=== PATIENT | female | born 1950 | race Caucasian/White ===

== ENCOUNTER 2017-06-04 13:37 | Inpatient (IN) | payer MEDICARE, MEDICAID ==
[2017-06-04] MEDS ORDERED: Fentanyl 100 MCG/2 ML VIAL ONE (13:53)
[2017-06-04 15:18] LABS: Troponin I 0.017 ng/mL (< 0.028)
[2017-06-04 15:29] LABS: CKMB 7.1 ng/mL (0-6.6)
[2017-06-04] MEDS ORDERED: Azithromycin 500 MG in Sodium Chloride 0.9% 250 ML 250 ML IVPB ONE (16:00)
[2017-06-04] MEDS ORDERED: Ondansetron HCl/PF 4 MG/2 ML Vial IVP PRN (17:28)
[2017-06-04] MEDS ORDERED: Acetaminophen 325 MG TAB PO PRN (17:28)
[2017-06-04] MEDS ORDERED: Ondansetron ODT 4 MG TAB SL PRN (17:28)
[2017-06-04 17:54] LABS: Troponin I Less than 0.010 ng/mL (< 0.028)
[2017-06-04] MEDS ORDERED: cefTRIAXone\\ROCEPHIN 2 GM in Sodium Chloride 0.9% 100 ML IVPB SCH (18:00)
[2017-06-04] MEDS ORDERED: Labetalol HCl 100 MG/20 ML VIAL SLOW IVP PRN (20:25)
[2017-06-04 20:40] LABS: Troponin I 0.019 ng/mL (< 0.028)
[2017-06-04 20:54] LABS: #Lymphocytes 0.9 thou/uL (1.20-3.40); #Monocytes 0.3 thou/uL (0.11-0.59); #Neutrophils 9.1 thou/uL (1.40-6.50); %Basophils 0.1 % (0.0-1.0); %Eosinophils 0.5 % (0.0-10.0); %Lymphocytes 8.9 % (21.0-51.0); %Monocytes 2.7 % (0.0-10.0); %Neutrophils 87.9 % (42.0-75.0); Hemoglobin 10.9 g/dL (12.0-16.0); Mean Corpuscular HGB CONC 33.1 g/dL (32.0-36.0); Mean Corpuscular Hemoglobin 28.9 pg (27.0-31.0); Mean Corpuscular Volume 87.5 fl (81.0-99.0); Mean Platelet Volume 7.3 fL (7.4-10.4); Platelet Count 129 thou/uL (130-400); RBC Distribution Width 13.5 % (11.5-14.5); Red Blood Cell (RBC) Count 3.78 mill/uL (4.20-5.40); White Blood Cell (WBC) Count 10.3 thou/uL (4.8-10.8)
[2017-06-04] MEDS ORDERED: FLU VACC TS2017-18 (>65YR) 0.5 ML SYRINGE IM ONE (21:00)
[2017-06-04] MEDS ORDERED: levETIRAcetam 500 MG TAB PO SCH (21:00)
[2017-06-04] MEDS ORDERED: Prevnar 13-Val Conj/PF 0.5 ML SYRINGE IM ONE (21:00)
[2017-06-04] MEDS: Famotidine/PF 20 mg/2ml Vial SLOW IVP SCH (21:05)
[2017-06-04 21:12] LABS: Anion Gap 12 mmol/L (10-20); BUN (Urea Nitrogen) 10 mg/dL (9.8-20.1); Calc. Creatinine Clearance 59 mL/min (70-130); Calcium 8.6 mg/dL (7.8-10.44); Carbon Dioxide 20 mmol/L (23-31); Chloride 110 mmol/L (98-107); Estimated GFR-MDRD 44; Glucose 111 mg/dL (80-115); Potassium 4.2 mmol/L (3.5-5.1); Sodium 138 mmol/L (136-145)
[2017-06-04 21:24] LABS: Troponin I 0.013 ng/mL (< 0.028)
[2017-06-04 21:57] LABS: Bilirubin Negative (Negative); Blood, Urine Trace (Negative); Clarity CLEAR (Clear); Glucose, Urine (Dipstick) Negative (Negative); Leukocyte Small (Negative); Nitrite Negative (Negative); Protein, Urine (Dipstick) 30 mg/dL (Neg-Trace); Specific Gravity, Urine 1.018 (1.002-1.036); Urobilinogen 0.2 mg/dL (0.2-1.0)
[2017-06-04 21:59] LABS: Bacteria/HPF None Seen HPF (None Seen); Hyaline Casts/LPF 0-3 HYALINE CAST LPF (0-3 Hyaline); Squamous Epithelial 0-3 HPF (0-3)
[2017-06-04] MEDS: Heparin 5,000 UNITS/ML VIAL SC SCH (22:35)
--- NOTE | 2017-06-04 23:50 | HP ---
PRIMARY CARE PROVIDER: She is coming from a intermediate from [place]. CHIEF COMPLAINT: Chest pain. HISTORY OF PRESENT ILLNESS: This is a 66-year-old female with a known history of prior CVA in 2012 with speech impairment, coronary artery disease, unknown aphasia, who presents with a chief complaint of chest pain that she is currently not voicing to me. The patient is intermittently somnolent. She is arousable. She vocalizes, but verbalizes very poorly. At the time of my evaluation, the patient does not appear to be having any pain or discomfort and is not in any acute distress. Does not endorse any chest pain or weakness, otherwise. The patient was transferred from [facility] to the emergency department. Per emergency department records, it appears that she was found to have a left lower lobe pneumonia on her chest x-ray. REVIEW OF SYSTEMS: Unable to obtain secondary to the patient's mental status as discussed above. HOME MEDICATIONS: Please see the EMR. The patient is unable to endorse or really complete any medication reconciliation with me, so it is presumed that her intermediate records are accurate. ALLERGIES: Include HYDRALAZINE, BUTALBITAL, CAFFEINE, KETOROLAC, MORPHINE, PROPOXYPHENE, BESYLATE, DARVOCET-N. PAST MEDICAL HISTORY: Includes; 1. History of cerebrovascular accident on 04/07/2013, aphasia, right hemiparesis. 2. Arthrosis. 3. Coronary artery disease. 4. Hypertension. 5. Emphysema. 6. Pancreatic malignancy? 7. Status post cholecystectomy. 8. Status post hysterectomy. 9. Anxiety. FAMILY HISTORY: The patient is unable to endorse any family history. SOCIAL HISTORY: The patient is unable to discuss the social history. She is here from a intermediate. She has no documented DNR status, so she is presumed to be a FULL CODE at this point in time as no family is available. There is a note in her ER documentation that she has a history of taking other family members' narcotics. She does not appear to be having any smoking, alcohol, or illicit drug use. PHYSICAL EXAMINATION: VITAL SIGNS: Temperature 98.8, pulse of 119, respirations 20, satting 95% on room air, blood pressure 159/92. PHYSICAL EXAMINATION: GENERAL: Patient is a thin, cachectic, lying at the bed, somnolent, but easily arousable. HEENT: Normocephalic, atraumatic. Slightly dry mucous membranes. CARDIOVASCULAR: S1, S2. Pulses 2+ bilateral upper extremities. No pitting pedal edema. Respiratory limited anterior examination. Marginal air movement. Coarse throughout. No wheezes, rales, or rhonchi. ABDOMEN: Positive bowel sounds, soft. Nontender to palpation. NEUROLOGIC: Unable to neurologically assess secondary to the patient's lack of participation. LABORATORY DATA AND IMAGING: Only blood work available is a creatinine kinase of 162, CK-MB of 7.1, and troponin initial 0.017 followed by 0.010. ASSESSMENT AND PLAN: A 66-year-old female who presents with altered mental status and chest pain. 1. Regarding this patient's chest pain, she has been having negative troponins. We will continue to trend for a third. She has a slightly elevated CK-MB, we will continue to monitor. 2. Prior history of cerebrovascular accident, initial CT of the head is negative. We will follow up with echocardiogram, MRI in the a.m. Consult Neurology. 3. Prior history of seizure disorder, check her Keppra level. We will continue her home medications. 4. Diet n.p.o. until seen by speech therapy. Consult physical therapy and occupational therapy as well. 5. Activity: As tolerated with therapy assistance. 6. Deep vein thrombosis prophylaxis with sequentials and heparin. The patient is presumably FULL CODE. She was admitted to the Stroke Unit at this point in time. [facility]ENTER[facility]
[2017-06-05 02:34] LABS: #Lymphocytes 0.6 thou/uL (1.20-3.40); #Monocytes 0.2 thou/uL (0.11-0.59); #Neutrophils 6.3 thou/uL (1.40-6.50); %Eosinophils 0.4 % (0.0-10.0); %Lymphocytes 8.3 % (21.0-51.0); %Monocytes 2.6 % (0.0-10.0); %Neutrophils 88.7 % (42.0-75.0); Hemoglobin 10.9 g/dL (12.0-16.0); Mean Corpuscular HGB CONC 34.3 g/dL (32.0-36.0); Mean Corpuscular Volume 87.3 fl (81.0-99.0); Mean Platelet Volume 7.4 fL (7.4-10.4); Platelet Count 119 thou/uL (130-400); RBC Distribution Width 13.3 % (11.5-14.5); Red Blood Cell (RBC) Count 3.65 mill/uL (4.20-5.40); White Blood Cell (WBC) Count 7.1 thou/uL (4.8-10.8)
[2017-06-05 03:04] LABS: Anion Gap 13 mmol/L (10-20); BUN (Urea Nitrogen) 9 mg/dL (9.8-20.1); Calc. Creatinine Clearance 63 mL/min (70-130); Calcium 8.4 mg/dL (7.8-10.44); Carbon Dioxide 17 mmol/L (23-31); Cardiac Risk 2.8 (Less than 4.5); Chloride 110 mmol/L (98-107); Cholesterol 88 mg/dl (< 200 Desired); Estimated GFR-MDRD 48; Glucose 114 mg/dL (80-115); HDL Cholesterol 31 mg/dL (>60 Neg Risk); LDL Cholesterol, Calculated 37 mg/dL; Potassium 4.1 mmol/L (3.5-5.1); Sodium 136 mmol/L (136-145); Triglycerides 99 mg/dL (Less than 150); Troponin I 0.013 ng/mL (< 0.028)
[2017-06-05] MEDS: Atorvastatin Calcium 40 MG TAB PO SCH ×2 (07:07→21:29)
[2017-06-05] MEDS: Metoprolol Tartrate 50 MG TAB PO SCH ×3 (07:08→21:29)
[2017-06-05] MEDS: Heparin 5,000 UNITS/ML VIAL SC SCH ×3 (08:40→21:30)
[2017-06-05] MEDS: Famotidine/PF 20 mg/2ml Vial SLOW IVP SCH ×2 (08:40→21:29)
--- NOTE | 2017-06-05 11:12 | MRI ---
MRI BRAIN NONCONTRAST: HISTORY: TIA. Right facial droop. Slurred speech. FINDINGS: There is no evidence of acute intracranial hemorrhage or infarct. Marked dilatation of the left late ral ventricle and severe encephalomalacia throughout the left cerebral hemisphere is again demonstrat ed. Diffuse cortical atrophy and prominent chronic ischemic small disease are also visible. Minimal fluid layers within the left maxillary sinus. IMPRESSION: Severe old left cerebral encephalomalacia from prior infarcts. No acute infarct is evident. POS: GLORIA
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
[2017-06-05] MEDS ORDERED: Mag-Al 1200 mg/1200 mg/30 ML UDCUP PO PRN (14:45)
--- NOTE | 2017-06-05 20:33 | PDOC.PN ---
- Subjective Encounter Start Date: 06/05/17 Encounter Start Time: 14:00 Subjective: nsg notes rev, dinah ovn, arousable, answers single ques - Objective Resuscitation Status: Resuscitation Status FULL:Full Resuscitation Vital Signs & Weight: Vital Signs (12 hours) Temp Pulse Resp BP Pulse Ox 06/05/17 15:15 97.9 F 90 20 158/89 H 97 06/05/17 11:25 97.6 F 86 20 162/83 H 97 Weight Weight 180 lb 8 oz I&O: 06/04/17 06/05/17 06/06/17 06:59 06:59 06:59 Intake Total 560 Output Total 925 925 Balance -925 -365 Result Diagrams: 06/05/17 02:19 06/05/17 02:19 Phys Exam - Physical Examination Constitutional: NAD HEENT: sclera anicteric slightly dry mm Respiratory: no wheezing, no rales, no rhonchi, clear to auscultation bilateral limited anterior exam Cardiovascular: RRR, no significant murmur, no rub Gastrointestinal: positive bowel sounds Musculoskeletal: no edema Dx/Plan - Plan * Chest pain, resolved * CT, MRI neg * apprec neurology c/s * ? recurrent sz AMS unclear etiology - appears to be slowly improving ? related to dehydration * IVF, PT, OT, ST c/s appreciated Review of Systems - Medications/Allergies Allergies/Adverse Reactions: Allergies Allergy/AdvReac Type Severity Reaction Status Date / Time hydralazine Allergy Severe Verified 03/07/15 18:38 butalbital [From Fioricet] Allergy Verified 09/09/14 17:10 caffeine Allergy Verified 09/09/14 17:12 ketorolac tromethamine Allergy Verified 09/09/14 17:10 [From Toradol] morphine Allergy Verified 09/09/14 17:12 propoxyphene napsylate Allergy Verified 09/09/14 17:11 [From Darvocet-N 100] Medications: Current Medications Al Hydroxide/Mg Hydroxide (Maalox) 30 ml PO Q6H PRN PRN Reason: Indigestion Atorvastatin Calcium (Lipitor) 40 mg PO HS [facility] Last Admin: 06/05/17 07:07 Dose: Not Given Famotidine (Pepcid) 20 mg SLOW IVP Q12HR [facility] Last Admin: 06/05/17 08:40 Dose: 20 mg Heparin Sodium (Porcine) (Heparin) 5,000 units SC TID [facility] Last Admin: 06/05/17 14:37 Dose: 5,000 units Levofloxacin 500 mg/ Device 100 mls @ 100 mls/hr IVPB Q24HR [facility] Last Admin: 06/04/17 21:05 Dose: 100 mls Levetiracetam 500 mg/ Device 100 mls @ 200 mls/hr IVPB BID [facility] Last Admin: 06/05/17 08:41 Dose: 100 mls Labetalol HCl (Normodyne) 20 mg SLOW IVP Q1H PRN PRN Reason: BP > 220/110 Metoprolol Tartrate (Lopressor) 50 mg PO BID [facility] Last Admin: 06/05/17 08:41 Dose: 50 mg
[2017-06-06 04:07] LABS: #Eosinphils 0.1 thou/uL (0.0-0.7); #Lymphocytes 0.9 thou/uL (1.20-3.40); #Monocytes 0.2 thou/uL (0.11-0.59); #Neutrophils 7.1 thou/uL (1.40-6.50); %Basophils 0.1 % (0.0-1.0); %Eosinophils 0.8 % (0.0-10.0); %Lymphocytes 10.3 % (21.0-51.0); %Monocytes 2.9 % (0.0-10.0); Hemoglobin 11.9 g/dL (12.0-16.0); Mean Corpuscular HGB CONC 33.2 g/dL (32.0-36.0); Mean Corpuscular Hemoglobin 29.2 pg (27.0-31.0); Mean Platelet Volume 7.8 fL (7.4-10.4); Platelet Count 165 thou/uL (130-400); RBC Distribution Width 13.9 % (11.5-14.5); Red Blood Cell (RBC) Count 4.07 mill/uL (4.20-5.40); White Blood Cell (WBC) Count 8.3 thou/uL (4.8-10.8)
[2017-06-06 04:31] LABS: Anion Gap 14 mmol/L (10-20); BUN (Urea Nitrogen) 10 mg/dL (9.8-20.1); Calc. Creatinine Clearance 71 mL/min (70-130); Calcium 8.8 mg/dL (7.8-10.44); Carbon Dioxide 19 mmol/L (23-31); Chloride 107 mmol/L (98-107); Estimated GFR-MDRD 55; Glucose 111 mg/dL (80-115); Potassium 3.5 mmol/L (3.5-5.1); Sodium 136 mmol/L (136-145)
[2017-06-06] MEDS: Metoprolol Tartrate 50 MG TAB PO SCH ×2 (08:26→21:05)
[2017-06-06] MEDS: Famotidine/PF 20 mg/2ml Vial SLOW IVP SCH ×2 (08:26→21:06)
[2017-06-06] MEDS: Heparin 5,000 UNITS/ML VIAL SC SCH ×3 (08:28→21:05)
[2017-06-06] MEDS ORDERED: Amlodipine 5 MG TAB PO SCH (12:00)
--- NOTE | 2017-06-06 12:44 | PRG ---
DATE OF SERVICE: 06/06/2017 CHIEF COMPLAINT: Encephalopathy and worsening of prior stroke. INTERVAL HISTORY: The patient was seen and examined today, and patient is stable and no new event. She is able to respond and no seizures or new weakness are noted since yesterday. LABORATORY DATA: WBC count 8.3, hemoglobin 11.9, hematocrit 35.8 and platelets are 165. Chemistry: Sodium 136, potassium 3.5, chloride 107, bicarbonate 19, BUN 10, creatinine 1.01. OBJECTIVE: VITAL SIGNS: Blood pressure is 140/75, pulse is 94, temperature is 98.3. CHEST: Clear vesicular breathing. CARDIOVASCULAR: Normal. S1, S2 heard. NEUROLOGIC: Higher intellectual function: She is alert, awake, and seems to comprehend and follow s imple instructions even though she is aphasic. Cranial nerves: She has right facial droop. Motor e xamination: Contractures and severe weakness, right upper extremity at 2/1, right lower extremity is 2-3/1 and left upper and lower extremity, she had normal strength. IMPRESSION: The patient with prior severe ischemic event in the left MCA territory and prior stroke causing cerebral encephalomalacia from prior infarct and she also has prominent chronic ischemic smal l disease. The patient is stable since admission and I do not see that she has encephalopathy. She is primarily aphasic at this time. No additional testing is requested. RECOMMENDATIONS: Please call Neurology as needed. When medically stable, she can go back to her fac ility from a Neurology standpoint.
--- NOTE | 2017-06-06 14:58 | PRG ---
DATE OF SERVICE: 06/06/2017 SUBJECTIVE: The patient seen and examined at bedside. She is aphasic. She is not able to communica te with me and that is from previous stroke. She requires some help with feeding. She points out at her front chest and telling us that there is some pain. OBJECTIVE: VITAL SIGNS: Blood pressure is 192/103, temperature is 98.8, pulse 105, respiratory rate is 18, and pulse oximetry 97% on room air. HEENT: Atraumatic, normocephalic. She tries to follow my commands. Sclerae is nonicteric. NECK: Supple. LUNGS: Clear. HEART: S1, S2, somewhat tachycardic. No S3, no S4. ABDOMEN: Soft, nontender. LUNGS: Clear. EXTREMITIES: No clubbing, cyanosis, or edema. NEUROLOGIC: She is aphasic. Her right upper extremity is completely paralyzed. LABORATORY DATA: Showed a white count of 8.3, hemoglobin 11.9, hematocrit 35.8, platelet count is 16 5,000, 86% neutrophils. Sodium 136, potassium 3.5, chloride 107, CO2 of 19, BUN of 10, creatinine of 1.01. Three sets of troponins are negative. Keppra level 28.6. IMPRESSION: 1. Recurrent chest pain, which seems to be musculoskeletal. We will try some tramadol p.r.n. and se e how this helps. Her cardiac enzymes came back normal. EKG did not show any significant changes. Echo is done and the results are pending. 2. Old cerebrovascular accident with right-sided hemiparesis. 3. Uncontrolled hypertension. Restart her on amlodipine 5 mg once a day, first dose now. 4. History of emphysema. 5. Anxiety. PLAN: For now, she requires prior report on her echocardiogram which was done yesterday and the prev ious echo showed normal LVEF. If there is any change on echo wall motion abnormalities, she will nee d to see a medical customer service representative. For now, we will continue her current regimen left lower lobe pneumon ia, she is on Levaquin. I will obtain the chest x-ray tomorrow morning and we will continue her labe talol.
[2017-06-06] MEDS: traMADol HCl 50 MG TAB PO PRN ×2 (17:34→22:34)
[2017-06-06] MEDS: Atorvastatin Calcium 40 MG TAB PO SCH (21:05)
[2017-06-07 05:07] LABS: #Eosinphils 0.1 thou/uL (0.0-0.7); #Monocytes 0.3 thou/uL (0.11-0.59); #Neutrophils 8.1 thou/uL (1.40-6.50); %Basophils 0.1 % (0.0-1.0); %Eosinophils 0.5 % (0.0-10.0); %Lymphocytes 10.4 % (21.0-51.0); %Monocytes 3.1 % (0.0-10.0); %Neutrophils 85.8 % (42.0-75.0); Hemoglobin 12.2 g/dL (12.0-16.0); Mean Corpuscular HGB CONC 33.4 g/dL (32.0-36.0); Mean Corpuscular Hemoglobin 29.5 pg (27.0-31.0); Mean Corpuscular Volume 88.3 fl (81.0-99.0); Mean Platelet Volume 7.9 fL (7.4-10.4); Platelet Count 167 thou/uL (130-400); Red Blood Cell (RBC) Count 4.14 mill/uL (4.20-5.40); White Blood Cell (WBC) Count 9.4 thou/uL (4.8-10.8)
[2017-06-07 05:32] LABS: Anion Gap 16 mmol/L (10-20); BUN (Urea Nitrogen) 18 mg/dL (9.8-20.1); Calc. Creatinine Clearance 36 mL/min (70-130); Calcium 9.1 mg/dL (7.8-10.44); Carbon Dioxide 17 mmol/L (23-31); Chloride 108 mmol/L (98-107); Estimated GFR-MDRD 49; Glucose 124 mg/dL (80-115); Potassium 3.6 mmol/L (3.5-5.1); Sodium 137 mmol/L (136-145)
[2017-06-07] MEDS: Heparin 5,000 UNITS/ML VIAL SC SCH ×3 (08:19→21:59)
[2017-06-07] MEDS: Famotidine/PF 20 mg/2ml Vial SLOW IVP SCH ×2 (08:22→21:59)
[2017-06-07] MEDS: Metoprolol Tartrate 50 MG TAB PO SCH ×2 (08:22→21:58)
[2017-06-07] MEDS: Amlodipine 5 MG TAB PO SCH (08:23)
--- NOTE | 2017-06-07 09:22 | RAD ---
UPRIGHT PORTABLE CHEST 1 VIEW: HISTORY: A 66-year-old female with a history of followup pneumonia. COMPARISON: 06/04/17. FINDINGS: There is marked stable deformity of the proximal right humerus and right shoulder joint. Prominent s carring with some bullous changes in the apices and associated volume loss and some biapical pleural thickening. Patchy left lower lobe parenchymal changes slightly improved from prior study. No new p rocess. IMPRESSION: Slightly improved left lower lobe pulmonary parenchymal process. Evidence for resolving left lower l obe pneumonia. Stable chronic emphysema and scarring and volume loss in the apices bilaterally. POS: OFF
[2017-06-07] MEDS ORDERED: levETIRAcetam 500 MG TAB PO SCH (10:15)
[2017-06-07 12:19] VITALS: BMI 16.4
--- NOTE | 2017-06-07 12:44 | PDOC.PN ---
- Subjective Encounter Start Date: 06/07/17 Encounter Start Time: 12:42 -: non-verbal Subjective: No acute events overnight, -: No complaints- pt aphasic - Objective Resuscitation Status: Resuscitation Status FULL:Full Resuscitation MAR Reviewed: Yes Vital Signs & Weight: Vital Signs (12 hours) Temp Pulse Pulse Resp BP BP BP 06/07/17 12:00 98.7 F 80 14 147/76 H 06/07/17 09:14 80 149/88 H 06/07/17 08:23 92 152/92 H 06/07/17 08:00 97.2 F L 92 18 06/07/17 07:50 97.2 F L 92 18 158/90 H 06/07/17 04:12 97.6 F 86 20 148/85 H Pulse Ox 06/07/17 12:00 96 06/07/17 09:14 06/07/17 08:23 06/07/17 08:00 94 L 06/07/17 07:50 94 L 06/07/17 04:12 97 Weight Admit Weight 101 lb 12 oz Weight 98 lb 12.8 oz I&O: 06/06/17 06/07/17 06/08/17 06:59 06:59 06:59 Intake Total 560 728 120 Output Total 925 Balance -365 728 120 Result Diagrams: 06/07/17 04:15 06/07/17 04:15 Phys Exam - Physical Examination Constitutional: NAD HEENT: PERRLA, moist MMs, sclera anicteric Neck: supple, full ROM Respiratory: no wheezing, no rales, no rhonchi, clear to auscultation bilateral Cardiovascular: RRR, no significant murmur, no rub Gastrointestinal: soft, non-tender, no distention, positive bowel sounds Musculoskeletal: no edema, pulses present Strength 4/ Left extremities, 2/5 R extremities Neurological: non-focal Aphasic. R heniparesis Skin: no rash, normal turgor Dx/Plan (1) HTN (hypertension) Code(s): I10 - ESSENTIAL (PRIMARY) HYPERTENSION Status: Acute Qualifiers: Hypertension type: essential hypertension Qualified Code(s): I10 - Essential (primary) hypertension Comment: Achieving better control with PO meds (2) Chest pain, musculoskeletal Code(s): R07.89 - OTHER CHEST PAIN Status: Acute Comment: Improved with tramadol PRN (3) History of cerebrovascular accident with residual effects Code(s): I69.90 - UNSPECIFIED SEQUELAE OF UNSPECIFIED CEREBROVASCULAR DISEASE Status: Chronic Comment: Residual R hemiparesis (4) COPD (chronic obstructive pulmonary disease) Status: Chronic Qualifiers: COPD type: emphysema Emphysema type: unspecified Qualified Code(s): J43.9 - Emphysema, unspecified (5) Anxiety Code(s): F41.9 - ANXIETY DISORDER, UNSPECIFIED Status: Acute (6) Thrombocytopenia Code(s): D69.6 - THROMBOCYTOPENIA, UNSPECIFIED Status: Resolved (7) Pneumonia Code(s): J18.9 - PNEUMONIA, UNSPECIFIED ORGANISM Status: Acute Qualifiers: Pneumonia type: due to unspecified organism Laterality: left Lung location: lower lobe of lung Qualified Code(s): J18.1 - Lobar pneumonia, unspecified organism (8) Seizure disorder Code(s): G40.909 - EPILEPSY, UNSP, NOT INTRACTABLE, WITHOUT STATUS EPILEPTICUS Status: Acute - Plan cont current plan of care, continue antibiotics, PT/OT, respiratory therapy, DVT proph w/heparin Continue levofloxacin for PNA -: MEtoprolol and amlodipine for PNA; Keppra for seizure d/o -: PT/OT -: Speech therapy. -: f/u TTE * .
[2017-06-07] MEDS ORDERED: ALPRAZolam 0.5 MG TAB PO SCH (21:00)
[2017-06-07] MEDS: levETIRAcetam 500 MG TAB PO SCH (21:58)
[2017-06-07] MEDS: Atorvastatin Calcium 40 MG TAB PO SCH (21:59)
[2017-06-08 05:12] LABS: #Eosinphils 0.1 thou/uL (0.0-0.7); #Lymphocytes 1.1 thou/uL (1.20-3.40); #Monocytes 0.3 thou/uL (0.11-0.59); #Neutrophils 5.2 thou/uL (1.40-6.50); %Eosinophils 0.8 % (0.0-10.0); %Lymphocytes 16.1 % (21.0-51.0); %Monocytes 5.1 % (0.0-10.0); %Neutrophils 78.1 % (42.0-75.0); Hemoglobin 13.8 g/dL (12.0-16.0); Mean Corpuscular HGB CONC 31.9 g/dL (32.0-36.0); Mean Corpuscular Hemoglobin 28.3 pg (27.0-31.0); Mean Corpuscular Volume 88.6 fl (81.0-99.0); Platelet Count 127 thou/uL (130-400); RBC Distribution Width 14.3 % (11.5-14.5); Red Blood Cell (RBC) Count 4.87 mill/uL (4.20-5.40); White Blood Cell (WBC) Count 6.7 thou/uL (4.8-10.8)
[2017-06-08 05:25] LABS: Anion Gap 14 mmol/L (10-20); BUN (Urea Nitrogen) 25 mg/dL (9.8-20.1); Calc. Creatinine Clearance 34 mL/min (70-130); Calcium 9.8 mg/dL (7.8-10.44); Carbon Dioxide 22 mmol/L (23-31); Chloride 109 mmol/L (98-107); Estimated GFR-MDRD 47; Glucose 142 mg/dL (80-115); Potassium 3.7 mmol/L (3.5-5.1); Sodium 141 mmol/L (136-145)
[2017-06-08] MEDS ORDERED: Potassium Chloride 20 MEQ TAB PO SCH (08:00)
[2017-06-08] MEDS: Amlodipine 5 MG TAB PO SCH (08:49)
[2017-06-08] MEDS: Heparin 5,000 UNITS/ML VIAL SC SCH (08:50)
[2017-06-08] MEDS: Metoprolol Tartrate 50 MG TAB PO SCH (08:50)
[2017-06-08] MEDS: ALPRAZolam 0.25 MG TAB PO SCH ×2 (08:50→11:59)
[2017-06-08] MEDS: levETIRAcetam 500 MG TAB PO SCH (08:50)
[2017-06-08] MEDS: Famotidine/PF 20 mg/2ml Vial SLOW IVP SCH (08:50)
[2017-06-08 11:36] VITALS: BP 141/85; TEMP 98.1
--- NOTE | 2017-06-08 15:28 | PQF ---
CLINICAL DOCUMENTATION IMPROVEMENT CLARIFICATION FORM: ICD-10 Updated PLEASE DO AN ADDENDUM TO THE PROGRESS NOTE WITH ANY DOCUMENTATION UPDATES OR ADDITIONS AND CARRY THROUGH TO DC SUMMARY. THANK YOU. Date: 06/08/17 ATTN: Dr. Chavez Please exercise your independent, professional judgment in responding to the clarification form. Clinical indicators are provided on the bottom of this form for your review Please check appropriate box(s): [ ] Protein Calorie Malnutrition: [ x] Mild [ ] Moderate [ ] Severe [ ] Other Malnutrition (please specify) __ [ ] Underweight without malnutrition [ ] Cachexia [ ] Other diagnosis [ ] Unable to determine In addition, please specify: Present on Admission (POA): [ ] Yes [ ] No [ ] Unable to determine CLINICAL INDICATORS - SIGNS / SYMPTOMS / LABS H&P: PT IS THIN, CACHECTIC, TRUCK RENTAL SERVICE ATTENDANT'S ASSESSMENT 06/07/17: %WEIGHT CHANGE: -3% SINCE ADMIT IF WTS ACCURATE BMI 16.4 NUTRITION DIAGNOSIS: MALNUTRITION R/T COPD, LOW PO INTAKE. FAT WASTING NOTED TO ORBITAL AREAS, MUSCLE WASTING NOTED TO CLAVICLES, TRICEPS, & BICEPS. RISKS: H&P: HX CVA 04/07/13, APHASIA, R HEMIPARESIS. CAD, HTN. TREATMENT: TRUCK RENTAL SERVICE ATTENDANT ASSESSMENT: LOW BMI TRIGGER. ODER FOR DIET SUPPLEMENT 06/07: MIGHTY SHAKE ROUTINE TID WITH MEALS Moderate Malnutrition (in acute illness) Energy Intake: <75% of estimated energy requirement for > 7 days Weight Loss: 1-2%/1 week; 5%/ 1 month; 7.5%/3 months Other: mild body fat loss; mild muscle mass loss; mild fluid accumulation; Severe Malnutrition (in acute illness) Energy Intake: < 50% of estimated energy requirement for > 5 days Weight Loss: >1-2%/1 week; >5%/1 month; >7.5%/3 months Other: moderate body fat loss; moderate muscle mass loss; moderate- severe fluid accumulation; measurably agency appointments supervisor reduced strength Moderate Malnutrition (in chronic illness) Energy Intake: <75% of estimated energy requirement for >1 month Weight Loss: 5%/1 month; 7.5%/3 months; 10%/6 months; 20%/1 year Other: mild body fat loss; mild muscle mass loss; mild fluid accumulation Severe Malnutrition (in chronic illness) Energy Intake: <75% of estimated energy requirement for >1 month Weight Loss: >5%/1 month; >7.5%/3 months; >10%/6 months; >20%/1 year Other: severe body fat loss; severe muscle mass loss; severe fluid accumulation; measurably reduced agency appointments supervisor strength Thank you, Jolly (This form is maintained as a part of the permanent medical record) 2015 [employer] All Rights Reserved Jolly Sage RN, [email or web address] Office: [phone] [facility]
--- NOTE | 2017-06-08 15:47 | DIS ---
DATE OF ADMISSION: 06/04/2017 DATE OF DISCHARGE: 06/08/2017 DISCHARGE DIAGNOSES: Severe cerebrovascular disease, complete encephalomalacia of left cerebral deborah sphere with severe ischemic insult, aphasia, right upper and lower extremity hemiparesis with contrac tures. SECONDARY DIAGNOSES: Hypertension, chronic obstructive pulmonary disease, anxiety disorder, thromboc ytopenia, pneumonia, seizure disorder. HISTORY OF PRESENT ILLNESS/HOSPITAL COURSE: A 66-year-old female with a known history of prior CVA i n 2012 with speech impairment and CAD, who presented with chest pain, which was intermittent. The pa dwayne was not responding and was aphasic, but arousable, vocalizes, but very poorly. At time of eval uation, she was not in any pain or discomfort. Not in any acute distress. She was transferred from [facility] to the emergency department. According to department records, it seemed li ke she was found to have left lower lobe pneumonia on chest x-ray. She was admitted for chest pain, which turned out to be musculoskeletal. She had her troponins and CK-MB trended, which ruled out an PR. For her new stroke, she had imaging done, which included a brain MRI, did show severe old left c erebral encephalomalacia from prior infarct. No acute infarct was evident. She was reviewed by Neur ology, who recommended continuing present medications as well as Keppra for seizure prophylaxis. She remained stable throughout her stay and was discharged back to alf on 06/08/2017. DISCHARGE MEDICATIONS: Amlodipine 5 mg daily, atorvastatin 40 mg at bedtime, alprazolam 0.5 mg at be dtime, alprazolam 0.5 mg b.i.d., alendronate sodium 70 mg weekly, potassium chloride 20 mg b.i.d., Ke ppra 500 mg b.i.d., metoprolol tartrate 50 mg b.i.d., tramadol 50 mg as needed for pain, calcium carb bertha/vitamin D 1 tablet daily. PHYSICAL EXAMINATION: She was examined on the day of discharge. CONSTITUTIONAL: Nausea. GENERAL: No acute distress. HEENT: PERRLA. Moist mucous membranes. Sclerae are anicteric. NECK: Supple. Full range of movement. RESPIRATORY: No wheezing, rales, or rhonchi. LUNGS: Clear to auscultation bilaterally. CARDIOVASCULAR: Regular rate and rhythm. No significant murmurs or rubs. GASTROINTESTINAL: Soft, nontender, nondistended, positive bowel sounds. MUSCULOSKELETAL: No edema or pulses present. Strength 4/5 in the left extremities and 2/5 in right extremities. NEUROLOGICAL: Awake and alert, unable to assess orientation, as patient is aphasic. Has right hemip aresis. SKIN: No rash. Normal turgor. LABORATORY DATA: CBC: WBC 6.7, hemoglobin 13.8, platelets 127. Sodium 141, potassium 3.7, chloride 109, carbon dioxide 22, anion gap 14, BUN 25, creatinine 1.15. Troponin 0.013, triglyceride 99, cho lesterol 88, LDL 37, HDL 31, heart disease risk ratio is 2.8. IMAGING: MRI brain result as above. CONSULTATIONS: Neurology. CONDITION AT DISCHARGE: Stable or improved. PROCEDURES: None. Care goes to follow up with primary care physician within 1 week of discharge for repeat labs. DIET: Honey thick. ACTIVITY: As tolerated and directed by PT/OT. Discharge time 65 minutes including chart review and documentation.
--- NOTE | 2017-06-12 18:04 | EKG ---
Test Reason : Blood Pressure : / mmHG Vent. Rate : 089 BPM Atrial Rate : 089 BPM P-R Int : 142 ms QRS Dur : 096 ms QT Int : 410 ms P-R-T Axes : 084 -37 042 degrees QTc Int : 498 ms Normal sinus rhythm Left axis deviation Prolonged QT Abnormal ECG Confirmed by BAHMAN DAWSON, PEMA ([id number]), editor in chief newspaper RADHA CATES ([id number]) on 06/12/2017 6:03:18 PM Referred By: Confirmed By:PEMA RUGGIERO MD
== END 2017-06-08 13:56 | DRG 194 ==
LOC: ERS 13:37 → 2SE 15:17
PROVIDERS: ADMIT Family Medicine; ATTEND Family Medicine
DX: J18.9 Pneumonia, unspecified organism (principal); R64 Cachexia; I69.351 Hemiplegia and hemiparesis following cerebral infarction affecting right dominant side; D69.6 Thrombocytopenia, unspecified; E44.1 Mild protein-calorie malnutrition; Z68.1 Body mass index [BMI] 19.9 or less, adult; R07.89 Other chest pain; I25.10 Atherosclerotic heart disease of native coronary artery without angina pectoris; I69.320 Aphasia following cerebral infarction; I10 Essential (primary) hypertension; J44.9 Chronic obstructive pulmonary disease, unspecified; F41.9 Anxiety disorder, unspecified; G40.909 Epilepsy, unspecified, not intractable, without status epilepticus; M19.90 Unspecified osteoarthritis, unspecified site
CPT/HCPCS: 36415; 70551; 71045; 80048; 80061; 80177; 81015; 84484; 85025; 87324; 87449; 90471; 90670; 90682; 93005; 93306; 96374; G0008; G0009; G8978-GP-CM; G8979-GP-CK; G8987-GO-CM; G8988-GO-CM; G8989-GO-CM; G8996-GN-CL; G8997-GN-CK; J0456; J0696; J1644; J1953; J1956; J3010; J7050; Q2036; S0028

== ENCOUNTER 2017-06-30 09:29 | Day surgery (SDC) | payer MEDICARE, MEDICAID ==
[2017-06-29 14:14] VITALS: BMI 17.6
[~2017-06-30 09:29] MED LIST: FLU VACC TS2017-18 (>65YR) 0.5 ML SYRINGE IM ONE; Prevnar 13-Val Conj/PF 0.5 ML SYRINGE IM ONE
[2017-06-30 10:08] LABS: #Eosinphils 0.1 thou/uL (0.0-0.7); #Lymphocytes 1.1 thou/uL (1.20-3.40); #Monocytes 0.2 thou/uL (0.11-0.59); #Neutrophils 4.3 thou/uL (1.40-6.50); %Basophils 0.1 % (0.0-1.0); %Eosinophils 1.1 % (0.0-10.0); %Lymphocytes 19.1 % (21.0-51.0); %Monocytes 4.1 % (0.0-10.0); %Neutrophils 75.6 % (42.0-75.0); Hemoglobin 12.3 g/dL (12.0-16.0); Mean Corpuscular Hemoglobin 29.1 pg (27.0-31.0); Mean Corpuscular Volume 88.3 fl (81.0-99.0); Mean Platelet Volume 8.1 fL (7.4-10.4); Platelet Count 115 thou/uL (130-400); RBC Distribution Width 14.5 % (11.5-14.5); Red Blood Cell (RBC) Count 4.21 mill/uL (4.20-5.40); White Blood Cell (WBC) Count 5.7 thou/uL (4.8-10.8)
[2017-06-30 10:23] LABS: PTT 24.8 SEC (22.9-36.1); Prothrombin Time 13.4 SEC (12.0-14.7)
[2017-06-30 12:44] VITALS: BP 146/85; TEMP 98.6
--- NOTE | 2017-06-30 13:15 | CT ---
CT GUIDED LIVER BIOPSY: History: Liver mass. Technique: Informed consent was obtained from the patient. The right hepatic lesion was localized using CT edna nce. The overlying skin was prepped and draped in the usual sterile manner. A 1% Lidocaine solution w as used to anesthetize the overlying soft tissues. A small dermatomy was made. An 17 gauge needle was placed through the right hepatic lobe adjacent to the right hepatic lesion. A total of four 18 gauge 3.3 cm core biopsies were obtained. Specimens were given to pathology and adequate tissue volume was indicated to be present by pathology. A gel form plaudit was cut and placed through the outer needle into the right hepatic parenchyma. No immediate post procedure complications encountered. IMPRESSION: Successful CT guided right hepatic lobe mass biopsy. Pathology is pending. POS: GLORIA
== END 2017-06-30 13:30 | disposition home or self-care (01) ==
LOC: RAD 09:29
PROVIDERS: ATTEND Internal Medicine Gastroenterology
PROC: 0FB13ZX Excision of Right Lobe Liver, Percutaneous Approach, Diagnostic (ICD-10-PCS; principal; 2017-06-30)
DX: C22.8 Malignant neoplasm of liver, primary, unspecified as to type (principal); E78.00 Pure hypercholesterolemia, unspecified; I10 Essential (primary) hypertension; F41.9 Anxiety disorder, unspecified; I25.10 Atherosclerotic heart disease of native coronary artery without angina pectoris; M81.0 Age-related osteoporosis without current pathological fracture; Z86.73 Personal history of transient ischemic attack (TIA), and cerebral infarction without residual deficits; Z79.83 Long term (current) use of bisphosphonates; Z79.899 Other long term (current) drug therapy; Z88.5 Allergy status to narcotic agent; Z88.8 Allergy status to other drugs, medicaments and biological substances
CPT/HCPCS: 36415; 47000; 77002; 85025; 85610; 85730; 88307; 88333; 88341; 88342; 88360